=== PATIENT | female | born 1935 | race Caucasian/White ===

== ENCOUNTER 2023-05-13 11:47 | Emergency (ER) | payer MEDICARE ==
[~2023-05-13] VITALS: Ht 167.6 cm; Wt 99.8 kg
--- NOTE | 2023-05-13 13:57 | NUR ---
[employer] services entailed, after being present for the [facility] medical call, I contacted patient's son, Darron via from the ED phone, notifying him of his mother's and then when patient's dtr, Citlalli arrived, grief support, life review and prayer were offered. Citlalli and her friends showed signs of being comforted and voiced appreciation for the care given. [facility]
== END 2023-05-13 13:49 ==
LOC: ER 11:47 → EDBD 11:47 → ER 13:49
DX: I46.9 Cardiac arrest, cause unspecified (principal)
CPT/HCPCS: 92950; 99285-25; G0390